=== PATIENT | female | born 1995 | race Caucasian/White ===

== ENCOUNTER 2016-07-07 21:50 | Emergency (ER) | payer OTHER ==
[2016-07-07 22:37] VITALS: BMI 40.8
--- NOTE | 2016-07-07 23:36 | DIRPT ---
CLINICAL DATA: Fell down stairs a week ago. EXAM: LEFT HAND - COMPLETE 3+ VIEW COMPARISON: None. FINDINGS: No evidence of fracture of the carpal or metacarpal bones. Radiocarpal joint is intact. Phalanges are normal. No soft tissue injury. IMPRESSION: No fracture or dislocation. Electronically Signed By: Harish Peraza M.D. On: 07/07/2016 23:33
--- NOTE | 2016-07-07 23:49 | EDPRACDOC ---
- General Information Chief Complaint: Hand Pain Stated Complaint: left thumb and arm pain Time Seen by Provider: 07/07/16 23:11 Information Source: Patient Mode of Arrival: Car Home Medications: Home Medications Hydrocodone Bit/Acetaminophen [Wisner 5-325 Tablet] 1 - 2 tab PO Q6 PRN 07/07/16 Sertraline HCl [Zoloft] 100 mg PO DAILY 07/07/16 Allergies/Adverse Reactions: Allergies Allergy/AdvReac Type Severity Reaction Status Date / Time No Known Allergies Allergy Verified 07/07/16 22:36 - History of Present Illness Onset: 1 week HPI: PT PRESENTS WITH LEFT THUMB PAIN THAT BEGAN WHEN SHE FELL A COUPLE OF WEEKS AGO. STATES SHE HAS BEEN WEARING A SPLINT BUT CONTINUES TO HAVE DIFFICULTY MOVING HER THUMB. Location: Reports: Left, Thumb Dominant Hand: Right Mechanism: Reports: Hyperflexion, Hyperextension Circumstances: Reports: Fall Tetanus Up To Date?: Yes ED Past Medical History - History Reviewed Yes Nurses notes reviewed and agree except as marked - Patient Medical History Psychological History: Denies: Depression - Social Medical History Smoking Status: Never smoker EDM Review of Systems - Review of Systems ROS Negative Except as Marked: Yes All systems reviewed and were negative except as marked - Physical Exam Constitutional: Alert Oriented to: Time, Person, Place Last recorded Vital Signs: Last Vital Signs Temp 99.0 F 07/07/16 22:34 Pulse 85 07/07/16 22:34 Resp 20 07/07/16 22:34 BP 126/66 07/07/16 22:34 Pulse Ox 99 07/07/16 22:34 Oxygen Pulse Oxygen Saturation 99 O2 Device Room Air Oxygen Flow Rate Fraction of Inspired Oxygen ( FIO2) - HEENT Head: Normal ( normocephalic) Eye Exam: Normal (PERRL, EOMI, Sclera white) Oropharynx: Normal (Pharynx:Moist without exudate,Gums-no swelling) Nose: No Symptoms Reported (septum midline) Neck: Normal (FROM, trachea at midline) - Respiratory/Cardiovascular Respiratory: Normal - CTA (BBS clear to auscultation without adventitious sounds ) Cardiovascular: Normal (RRR without murmur, gallop or rub) - GI Auscultation: Normal (NABS) Palpation: Normal (Soft,No rebound or guarding, non distended) Tenderness: Non tender Marley's Sign: Negative Rectal Exam: Deferred - Musculoskeletal Back: Normal (Non-Tender) Extremities: Normal (Normal tone, Pulses 2+ No cyanosis or edema, FROM) - Integumentary Skin: Normal, Warm, Dry Lymphatics: Normal (no adenopathy) - Neurologic Memory Impaired: Normal Motor Function: Normal (Normal tone, Pulses 2+ No cyanosis or edema, FROM) Cranial Nerve: Normal (CN II-X11 intact sensation, strength 5/5) Cerebellar: Normal Mood Description: Normal Perception: Normal ED Hand Problem Physical Exam - Musculoskeletal Hand: Normal Wrist: Normal Digit: Limited ROM (LEFT THUMB), Moderate Tenderness (LEFT THUMB) Digit Strength: Flexion (DECREASED), Decreased Extension Nail: Normal Nailbed: Normal Soft Tissue: Normal Distal Function/Circulation: Normal - Integumentary Skin: Normal Lymphatics: Normal - Differential Diagnosis Sprain Decision Time to Discharge: 23:49 - Departure Disposition: Home Condition: Stable Final Diagnosis: Left thumb sprain Qualifiers: Encounter type: initial encounter Qualified Code(s): S63.602A - Unspecified sprain of left thumb, initial encounter Instructions: RICE: Routine Care for Injuries, Skier's Thumb (ED), Finger Sprain (ED) Education/Counseling Given To: Patient Education/Counseling Given Regarding: Diagnosis, Treatment, Prognosis, Follow Up Referrals: Eddi Pollock MD [Staff Physician] - One Week Additional Instructions: PLEASE CALL AND MAKE AN APPOINTMENT WITH [facility]. CONTINUE TO WEAR SPLINT.
[2016-07-08 00:17] VITALS: BP 120/81; PULSE 80; TEMP 98.6
== END 2016-07-08 00:16 | disposition home or self-care (01) ==
LOC: ED 21:50
DX: S63.602D Unspecified sprain of left thumb, subsequent encounter (principal); W19.XXXD Unspecified fall, subsequent encounter
CPT/HCPCS: 99283